=== PATIENT | female | born 1960 | race Two or more races ===

== ENCOUNTER 2024-01-08 00:40 | Inpatient (IN) | payer MEDICAID, OTHER ==
[~2024-01-08] VITALS: Ht 160 cm; Wt 52.8 kg
[2024-01-08] MEDS ORDERED: HALOPERIDOL LACTATE 5 MG/ML VIAL ONE (02:00)
[2024-01-08] MEDS ORDERED: DiphenhydrAMINE HCL 50 MG/ML VIAL ONE (02:00)
[2024-01-08] MEDS ORDERED: LORazepam 2 MG/ML VIAL ONE (02:00)
[2024-01-08] MEDS: LORazepam 2 MG/ML VIAL IM ONE (02:32)
[2024-01-08] MEDS: HALOPERIDOL LACTATE 5 MG/ML VIAL IM ONE (02:33)
[2024-01-08] MEDS: DiphenhydrAMINE HCL 50 MG/ML VIAL IM ONE (02:33)
[2024-01-08 03:13] LABS: COVID AG,FIA SOURCE NASAL SWAB
[2024-01-08 03:17] LABS: BASOPHILS % (AUTO) 0.5 % (0.0-2.0); EOSINOPHILS % (AUTO) 0.7 % (1.0-6.0); HEMATOCRIT 37.3 % (36-46); HEMOGLOBIN 12.4 g/dL (12.0-16.0); LYMPHOCYTES # (AUTO) 1.8 K/uL (1.0-4.8); LYMPHOCYTES % (AUTO) 20.3 % (22.0-44.0); MEAN CORPUSCULAR HEMOGLOBIN 31.6 pg (26.0-34.0); MEAN CORPUSCULAR HGB CONC 33.3 G/dL (31.0-37.0); MEAN CORPUSCULAR VOLUME 95 fL (80-100); MONOCYTES # (AUTO) 0.7 K/uL (0.1-1.0); MONOCYTES % (AUTO) 7.6 % (2.0-9.0); NEUTROPHILS # (AUTO) 6.1 K/uL (1.8-7.7); NEUTROPHILS % (AUTO) 70.9 % (40.0-70.0); PLATELET COUNT (AUTO) 315 K/uL (150-450); RED BLOOD CELL COUNT(AUTO) 3.93 MIL/uL (4.00-5.20); WHITE BLOOD COUNT (AUTO) 8.6 K/uL (4.5-11.0)
[2024-01-08 03:21] LABS: SARS-COV2 (COVID) ANTIGEN,FIA Negative (Negative)
[2024-01-08 03:24] LABS: ALCOHOL, BLOOD (SERUM) 87 mg/dL (0-10); ANION GAP 12 mmol/L (8-16); CALCIUM, TOTAL 8.1 mg/dL (8.8-10.5); CARBON DIOXIDE 25 mmol/L (22-29); CHLORIDE 107 mmol/L (98-107); CREATININE 0.61 mg/dL (0.60-1.30); GLOMERULAR FILTR. RATE CALC > 60 mL/min (>60); GLUCOSE,RANDOM 76 mg/dL (70-110); POTASSIUM 3.3 mmol/L (3.5-5.1); SODIUM SERUM 144 mmol/L (136-145); UREA NITROGEN, BLOOD 20 mg/dL (7-18)
[2024-01-08] MEDS: POTASSIUM CHLORIDE 20 MEQ ER TABLET PO ONE (21:31)
[2024-01-09 01:25] VITALS: BP 110/66; PULSE 80; RESP 18; TEMP 97.9; O2SAT 97
[2024-01-09 05:00] LABS: APPEARANCE,URINE CLEAR (CLEAR); BILIRUBIN,URINE NEGATIVE (NEGATIVE); COLOR,URINE LIGHT YELLOW (YELLOW); GLUCOSE, URINE (UA) NEGATIVE (NEGATIVE); KETONES,URINE =>150 mg/dL (NEGATIVE); LEUKOCYTE ESTERASE ,URINE NEGATIVE (NEGATIVE); NITRATE,URINE NEGATIVE (NEGATIVE); OCCULT BLOOD,URINE NEGATIVE (NEGATIVE); PROTEIN,URINE TRACE mg/dL (NEGATIVE); UROBILINOGEN,URINE <=1.0 mg/dL (<=1.0)
[2024-01-09 05:05] LABS: BACTERIA,URINE Few /HPF (None Seen); RBC,URINE 0-2 /HPF (0-2); SQUAMOUS EPITHELIAL CELL,UR Few /LPF (None Seen); WBC,URINE 0-2 /HPF (0-5)
[2024-01-09 05:19] LABS: ALCOHOL, URINE DRUG SCREEN NEGATIVE (NEGATIVE); AMPHET/METH SCREEN,URINE POSITIVE (NEGATIVE); BARBITURATE SCREEN, URINE NEGATIVE (NEGATIVE); BENZODIAZEPINES SCREEN,URINE NEGATIVE (NEGATIVE); CANNABINOID SCREEN,URINE NEGATIVE (NEGATIVE); COCAINE SCREEN,URINE NEGATIVE (NEGATIVE); METHADONE SCREEN, URINE NEGATIVE (NEGATIVE); OPIATE SCREEN,URINE NEGATIVE (NEGATIVE); PHENCYCLIDINE SCREEN,URINE NEGATIVE (NEGATIVE)
[2024-01-09] MEDS ORDERED: PETROLATUM,WHITE 28 GM JELLY TP PRN (08:45)
[2024-01-09] MEDS ORDERED: DOCUSATE SODIUM 100 MG CAPSULE PO PRN (08:45)
[2024-01-09] MEDS ORDERED: ONDANSETRON HCL 4 MG TABLET PO PRN (08:45)
[2024-01-09] MEDS ORDERED: GuaiFENesin/D-METHORPHAN [SUGAR-FREE] 200-20MG/10 ML SYRUP UDCUP PO PRN (08:45)
[2024-01-09] MEDS ORDERED: CloNIDine HCL 0.1 MG TABLET PO PRN (08:45)
[2024-01-09] MEDS ORDERED: LOPERAMIDE HCL 2 MG CAPSULE PO PRN (08:45)
[2024-01-09] MEDS ORDERED: ALBUTEROL SULFATE HFA 90 MCG/PUFF 8 GM INHALER IH PRN (08:45)
[2024-01-09] MEDS ORDERED: MAG HYDROX/ALUMINUM HYD/SIMETH ES 30 ML SUSPENSION UDCUP PO PRN (08:45)
[2024-01-09 10:05] VITALS: BP 133/80; PULSE 94; RESP 17; TEMP 98; O2SAT 96
[2024-01-09] MEDS: RisperiDONE 1 MG TABLET PO SCH (13:30)
[2024-01-09 20:25] VITALS: RESP 17
[2024-01-10 01:05] VITALS: BP 118/70; PULSE 82; RESP 18; TEMP 97.8; O2SAT 98
[2024-01-10] MEDS: ACETAMINOPHEN 325 MG TABLET PO PRN (01:08)
[2024-01-10 02:08] VITALS: RESP 18
[2024-01-10 07:51] LABS: HEMOGLOBIN A1C 5.4 % (3.8-5.6)
[2024-01-10 08:01] LABS: THYROID STIMULATING HORMONE 0.39 uIU/mL (0.36-3.74)
[2024-01-10 08:25] LABS: CHOL/HDL RATIO 2.7 (3.9-5.7); POTASSIUM 4.1 mmol/L (3.5-5.1)
[2024-01-10 09:53] VITALS: BP 134/82; PULSE 89; RESP 17; TEMP 97.9; O2SAT 97
[2024-01-10 10:58] VITALS: RESP 16
[2024-01-10] MEDS: CITALOPRAM HYDROBROMIDE 20 MG TABLET PO SCH (12:08)
[2024-01-10 21:19] VITALS: BP 135/76; PULSE 89; RESP 18; TEMP 98.4; O2SAT 97
[2024-01-11] MEDS: ZOLPIDEM TARTRATE 10 MG TABLET PO PRN (02:24)
[2024-01-11 08:20] VITALS: BP 131/86; PULSE 97; RESP 17; TEMP 97.7; O2SAT 98
[2024-01-11 10:57] VITALS: BP 131/86; PULSE 97; RESP 17; TEMP 97.7; O2SAT 98
[2024-01-11 20:00] VITALS: BP 99/69; PULSE 98; RESP 18; TEMP 98.6; O2SAT 96
[2024-01-12 00:56] VITALS: BP 106/67; PULSE 97; RESP 18; TEMP 98.5; O2SAT 97
[2024-01-12 08:35] VITALS: BP 141/79; PULSE 86; RESP 18; TEMP 97.9; O2SAT 97
[2024-01-12 11:15] VITALS: BP 135/72; PULSE 88; RESP 18
[2024-01-12 20:15] VITALS: BP 106/67; PULSE 90; RESP 18; TEMP 97.9; O2SAT 97
[2024-01-13 05:20] VITALS: BP 130/76; PULSE 75; RESP 18; TEMP 97.8; O2SAT 97
[2024-01-13] MEDS: LORazepam 2 MG TABLET PO PRN (07:27)
[2024-01-13] MEDS: FOLIC ACID 1 MG TABLET PO SCH (08:27)
[2024-01-13] MEDS: MULTIVITAMINS, THERAPEUTIC TABLET PO SCH (08:27)
[2024-01-13] MEDS: THIAMINE 100 MG TABLET PO SCH (08:27)
[2024-01-13 09:15] VITALS: BP 110/68; PULSE 73; RESP 18; TEMP 97.8; O2SAT 95
[2024-01-13 21:32] VITALS: BP 108/79; PULSE 79; RESP 18; TEMP 97; O2SAT 98
[2024-01-14 01:23] VITALS: RESP 19
[2024-01-14 02:23] VITALS: RESP 18
[2024-01-14 09:05] VITALS: BP 151/91; PULSE 101; RESP 18; TEMP 98.1; O2SAT 99
[2024-01-14 12:56] VITALS: BP 143/88; PULSE 96; RESP 19; TEMP 98.2; O2SAT 98
[2024-01-14 21:36] VITALS: BP 136/92; PULSE 89; RESP 18; TEMP 97.6; O2SAT 99
[2024-01-15] MEDS: NICOTINE 14 MG/24 HOUR PATCH TD PRN (08:22)
[2024-01-15 08:31] VITALS: BP 130/82; PULSE 102; RESP 18; TEMP 98.6; O2SAT 95
[2024-01-15 20:25] VITALS: BP 127/72; PULSE 85; RESP 18; TEMP 97.4; O2SAT 96
[2024-01-16 10:44] VITALS: BP 130/78; PULSE 98; RESP 16; TEMP 97.9
[2024-01-16] MEDS: IBUPROFEN 400 MG TABLET PO PRN (10:44)
[2024-01-16 11:44] VITALS: BP 129/71; PULSE 89; RESP 17; TEMP 98
[2024-01-16] MEDS: QUEtiapine FUMARATE 100 MG TABLET PO PRN (12:20)
[2024-01-17 08:12] VITALS: BP 118/70; PULSE 90; RESP 16; TEMP 98.3; O2SAT 98
[2024-01-17 20:15] VITALS: RESP 18
[2024-01-18 08:48] VITALS: BP 140/79; PULSE 81; RESP 18; TEMP 98.1; O2SAT 98
[2024-01-18 20:53] VITALS: BP 135/78; PULSE 88; RESP 18; TEMP 98.2; O2SAT 98
[2024-01-19 10:30] VITALS: BP 104/70; PULSE 95; RESP 18; TEMP 97.6; O2SAT 98
[2024-01-19 21:48] VITALS: BP 103/66; PULSE 81; RESP 18; TEMP 97.8; O2SAT 100
[2024-01-20 08:25] VITALS: BP 110/69; PULSE 88; RESP 18; TEMP 98.3; O2SAT 97
[2024-01-20 20:52] VITALS: BP 95/60; PULSE 74; RESP 18; TEMP 97.6
[2024-01-21 09:30] VITALS: BP 95/61; PULSE 82; RESP 18; TEMP 97.8; O2SAT 98
[2024-01-21 22:14] VITALS: BP 110/70; PULSE 80; RESP 18; TEMP 97.8; O2SAT 98
[2024-01-22 05:10] VITALS: BP 111/71; PULSE 77; RESP 18; O2SAT 98
[2024-01-22 09:10] VITALS: BP 99/69; PULSE 81; RESP 17; TEMP 97.7; O2SAT 97
[2024-01-22 21:06] VITALS: BP 121/70; PULSE 72; RESP 18; TEMP 98.4; O2SAT 97
[2024-01-23] MEDS: MAGNESIUM HYDROXIDE SUSPENSION 30 ML UDCUP PO PRN (08:43)
[2024-01-23 09:42] VITALS: BP 153/70; PULSE 87; RESP 17; TEMP 97.5; O2SAT 97
[2024-01-24 04:19] VITALS: BP 100/60; PULSE 74; RESP 18; TEMP 98; O2SAT 98
[2024-01-24] MEDS: NICOTINE 14 MG/24 HOUR PATCH TD SCH (08:14)
[2024-01-24 09:18] VITALS: BP 117/57; PULSE 75; RESP 16; TEMP 98; O2SAT 97
[2024-01-24 21:00] VITALS: BP 94/61; PULSE 81; RESP 19; TEMP 97.8; O2SAT 97
[2024-01-25 08:29] VITALS: BP 104/69; PULSE 83; RESP 18; TEMP 97.8; O2SAT 98
[2024-01-25] MEDS ORDERED: RISP-31 PO (08:52)
[2024-01-25] MEDS ORDERED: CITA-144 PO (08:52)
== END 2024-01-25 15:45 | disposition home or self-care (01) | DRG 751 ==
LOC: EMS 00:40 → 3EC 22:30 → 3EI 01-10 17:39 → 3EC 01-10 19:25 → 3EI 01-18 18:46
PROVIDERS: ADMIT Psychiatry & Neurology Psychiatry; ATTEND Psychiatry & Neurology Psychiatry
PROC: GZHZZZZ Group Psychotherapy (ICD-10-PCS; principal; 2024-01-09)
PROC: GZ52ZZZ Individual Psychotherapy, Cognitive (ICD-10-PCS; 2024-01-09)
DX: F29 Unspecified psychosis not due to a substance or known physiological condition (principal); E83.51 Hypocalcemia; E87.6 Hypokalemia; F10.10 Alcohol abuse, uncomplicated; Z20.822 Contact with and (suspected) exposure to COVID-19; F17.210 Nicotine dependence, cigarettes, uncomplicated; F15.10 Other stimulant abuse, uncomplicated; Y90.4 Blood alcohol level of 80-99 mg/100 ml; Z79.899 Other long term (current) drug therapy
CPT/HCPCS: 80048; 80061; 80307; 81001; 83036; 84132; 84443; 85025; 97110; 97116; 97162; 97166; 97530; 97535; 99285; G0480; J1200; J1630; J2060